=== PATIENT | male | born 1980 | race Caucasian/White ===

== ENCOUNTER 2020-11-01 21:28 | Emergency (ER) | payer OTHER ==
[2020-11-02 02:14] LABS: HEMOGLOBIN 15.5 gm/dl (14.0-17.5); RED BLOOD COUNT 4.94 M/UL (4.20-5.50); WHITE BLOOD COUNT 11.8 K/UL (4.5-11.0)
[2020-11-02 03:01] LABS: BUN/CREATININE RATIO 20 (0-10)
== END 2020-11-02 03:55 | disposition home or self-care (01) ==
LOC: ER1 21:28
PROVIDERS: Family Medicine
DX: E11.649 Type 2 diabetes mellitus with hypoglycemia without coma (principal); E11.43 Type 2 diabetes mellitus with diabetic autonomic (poly)neuropathy; K31.84 Gastroparesis; Z90.49 Acquired absence of other specified parts of digestive tract; Z79.4 Long term (current) use of insulin
CPT/HCPCS: 71046; 80053; 82550; 82553; 82962; 83605; 84484; 85025; 96374; 99285; J2765